=== PATIENT | female | born 1985 | race American Indian/Alaskan Native ===

== ENCOUNTER 2020-11-28 06:31 | Day surgery (SDC) | payer OTHER ==
--- NOTE | 2020-11-22 10:44 | History and Physical Report ---
History of Present Illness Date of examination: 11/28/20 History of present illness: 35 yo with menorrhagia and h/o anemia. PT had a normal U/S and a neg EMBx. H/O BTL. Past History Past Medical History: other (anemia, B12 deficiency) Past Surgical History: section, other (gastric sleeve, BTL) Medications and Allergies Allergies Allergy/AdvReac Type Severity Reaction Status Date / Time No Known Allergies Allergy Unverified 11/27/20 11:39 Home Medications Medication Instructions Recorded Confirmed Last Taken Type Bupropion HCl [Wellbutrin XL] 300 mg PO QAM 11/27/20 11/28/20 11/27/20 08:00 History Ergocalciferol (Vitamin D2) 50 mcg PO DAILY 11/27/20 11/28/20 11/27/20 08:00 History [Vitamin D2] Ferrous Sulfate [Feosol] 325 mg PO QDAY 11/27/20 11/28/20 11/27/20 08:00 History Active Meds: see EMR charting Review of Systems All systems: negative (except HPI) - Vital Signs Vital signs: see EMR charting - Physical Exam Cardiovascular: Regular rate Lungs: Positive: Clear to auscultation, Normal air movement Vulva: both: normal Vagina: Positive: normal moisture. Negative: discharge Cervix: Negative: lesion, discharge Uterus: Positive: normal size (uterus sounded to 9 cm during EMB), normal contour Adnexa: both: normal Results All other labs normal. Assessment and Plan - Patient Problems (1) Menorrhagia Current Visit: No Status: Acute Plan to address problem: PT will be presenting on 11/28 for D&C, hysteroscopy, Novasure. PT fully consented. Patient fully consented for the surgery. Risks, benefits, and alternatives were all discussed with the patient including risk of bleeding, infection, and potential for injury. Patient understands and accepts these risks. Patient agrees to proceed with surgery. All questions were answered. (2) Anemia Current Visit: No Status: Acute
[~2020-11-28 06:31] MED LIST: ACETAMINOPHEN 500 MG TAB PO SCH; LACTATED RINGERS 1,000 ML IV SCH; MIDAZOLAM 2 MG/2 ML INJ IV NR
[2020-11-28] MEDS ORDERED: SODIUM CHLORIDE 0.9% IRRIG SOLN 2000 ML IR ONE (07:43)
[2020-11-28] MEDS ORDERED: ONDANSETRON 4 MG/2 ML INJ ONE (08:19)
[2020-11-28] MEDS ORDERED: LIDOCAINE MPF (2%) 20 MG/1 ML VIAL 5 ML ONE (08:19)
[2020-11-28] MEDS ORDERED: propofoL 200 MG/20 ML VIAL IV ONE (08:19)
[2020-11-28] MEDS ORDERED: dexAMETHasone 20 MG/5 ML VIAL ONE (08:19)
[2020-11-28] MEDS ORDERED: fentaNYL 100 MCG/2 ML INJ ONE (08:19)
--- NOTE | 2020-11-28 09:32 | Anesthesia Day of Surgery ---
Anesthesia Day of Surgery - Day of Surgery Patient Examined: Yes Patient H&P Reviewed: Yes Patient is NPO: Yes
--- NOTE | 2020-11-28 09:32 | Anesthesia Consultation ---
Anesthesia Consult and Med Hx Date of service: 11/28/20 - Airway Anesthetic Teeth Evaluation: Good ROM Head & Neck: Adequate Mental/Hyoid Distance: Adequate Mallampati Class: Class III Intubation Access Assessment: Possibly Difficult - Pre-Operative Health Status ASA Pre-Surgery Classification: ASA2 Proposed Anesthetic Plan: General - Pulmonary Hx Smoking: No Hx Respiratory Symptoms: No Hx Sleep Apnea: Yes (Pt states resolved due to weight loss) - Cardiovascular System Hx Hypertension: No - Central Nervous System CVA: No Hx Psychiatric Problems: Yes (anxiety) - Endocrine Hx Renal Disease: No Hx Liver Disease: No Hx Insulin Dependent Diabetes: No Hx Non-Insulin Dependent Diabetes: No Hx Thyroid Disease: No - Other Systems Hx Obesity: Yes (BMI 36) - Additional Comments Anesthesia Medical History Comments: No hx anesthetic complications.
--- NOTE | 2020-11-28 09:34 | Post Operative Note ---
Date of procedure: 11/28/20 Pre-op diagnosis: Menorrhagia and anemia Post-op diagnosis: same Findings: Patient with an anteverted uterus that sounded to 10.5 cm. The cavity length was 4.5 cm and the cavity width was 5 cm. The remainder of the pelvic exam was within normal limits Procedure: Indication: 35-year-old with menorrhagia and anemia. Patient with a history of a tubal ligation. Patient is here for D&C, hysteroscopy, NovaSure endometrial ablation. Procedure: Patient was taken to the operating room and prepped and draped in the usual fashion. Bimanual exam was done. Findings noted above. Single tooth tenaculum was applied to the anterior lip of the cervix. Uterus was sounded and then adequately dilated for the placement of the hysteroscope which was done without difficulty. Hysteroscopic findings noted above. Measurement for the N ovaSure device was done. Hysteroscope then removed and sharp endometrial curettage was performed until a good cry was noted throughout. NovaSure device was then placed at this point. The cavity test was performed. It passed and the ablation was performed to its completion without difficulty. NovaSure device and single-tooth tenaculum were removed. Good hemostasis noted throughout. Procedure concluded at this point. Patient tolerated the procedure well. All instrument and lap counts were correct. Patient taken to the recovery in stable condition. Anesthesia: GETA Surgeon: ROXANE HENDERSON Estimated blood loss: minimal Pathology: list ([facility]) Specimen disposition: to lab Condition: stable Disposition: PACU
--- NOTE | 2020-11-28 09:36 | Short Stay Summary ---
Short Stay Documentation Date of service: 11/28/20 Narrative H&P: Patient had a D&C, hysteroscopy, NovaSure endometrial ablation 11/28/2020 for menorrhagia. See operative report and H&P for details. Surgery was uncomplicated. Patient sent home in stable condition and is to follow-up in the office in 4 weeks. - History H&P: dictated - Allergies and Medications Current Medications: Allergies No Known Allergies Allergy (Unverified 11/27/20 11:39) Home Medications Medication Instructions Recorded Confirmed Last Taken Type Bupropion HCl [Wellbutrin XL] 300 mg PO QAM 11/27/20 11/28/20 11/27/20 08:00 History Ergocalciferol (Vitamin D2) 50 mcg PO DAILY 11/27/20 11/28/20 11/27/20 08:00 History [Vitamin D2] Ferrous Sulfate [Feosol] 325 mg PO QDAY 11/27/20 11/28/20 11/27/20 08:00 History Active Medications Acetaminophen (Acetaminophen 500 Mg Tab) 1,000 mg PO PREOP EMMA Stop: 11/28/20 23:00 Last Admin: 11/28/20 07:25 Dose: 1,000 mg Documented by: Fentanyl (Fentanyl 100 Mcg/2 Ml Inj) 50 mcg IV Q5MIN PRN PRN Reason: Pain , Severe (7-10) Lactated Ringer's (Lactated Ringers) 1,000 mls @ 100 mls/hr IV DIRECT EMMA Stop: 11/28/20 23:59 Last Admin: 11/28/20 07:30 Dose: 100 mls/hr Documented by: Midazolam HCl (Midazolam 2 Mg/2 Ml Inj) 2 mg IV PREOP NR Stop: 11/28/20 23:00 Ondansetron HCl (Ondansetron 4 Mg/2 Ml Inj) 4 mg IV ONCE PRN PRN Reason: Nausea And Vomiting - Disposition Condition at discharge: Stable Disposition: -01 TO HOME OR SELFCARE - Discharge Diagnoses (1) Menorrhagia Status: Acute (2) Anemia Status: Acute Short Stay Discharge Plan Follow up with: ALIS DENIS MD [Primary Care Provider] - 7 Days
[2020-11-28] MEDS ORDERED: ONDANSETRON 4 MG/2 ML INJ IV PRN (10:00)
[2020-11-28] MEDS ORDERED: fentaNYL 100 MCG/2 ML INJ IV PRN (10:00)
[2020-11-28] MEDS ORDERED: HYDROcodone/ACETAMINOPHEN 5-325 MG TAB ONE (10:35)
[2020-11-28] MEDS ORDERED: HYDROcodone/ACETAMINOPHEN 5-325 MG TAB PO ONE (10:35)
[2020-11-28 10:40] VITALS: BP 112/71
--- NOTE | 2020-11-28 14:06 | Post Anesthesia Evaluation ---
- Post Anesthesia Evaluation Patient Participated: Yes Airway Patent: Yes Stable Respiratory Function: Yes Nausea/Vomiting: No Temp > 96.8F: Yes Pain Manageable: Yes Adequeate Hydration: Yes Anesthesia Complications: No
== END 2020-11-28 12:10 | disposition home or self-care (01) ==
LOC: OR 06:31
PROVIDERS: ATTEND Obstetrics & Gynecology
DX: N92.0 Excessive and frequent menstruation with regular cycle (principal); D64.9 Anemia, unspecified; G43.909 Migraine, unspecified, not intractable, without status migrainosus; G47.30 Sleep apnea, unspecified; E66.9 Obesity, unspecified; F41.9 Anxiety disorder, unspecified; Z98.890 Other specified postprocedural states; Z79.899 Other long term (current) drug therapy; Z68.36 Body mass index [BMI] 36.0-36.9, adult
CPT/HCPCS: 58563; 88305; A4217; J1100; J2250; J2405; J2704; J3010; J7120